=== PATIENT | female | born 1995 | race Caucasian/White ===

== ENCOUNTER 2017-03-31 14:40 | Inpatient (IN) | payer MEDICAID ==
[2017-03-31 15:50] LABS: ADD UMIC YES; UR ASCORBIC ACID 20 mg/dL (NEGATIVE); UR BACTERIA FEW /HPF (NONE SEEN); UR BILIRUBIN (Dip) NEGATIVE (NEGATIVE); UR BLOOD (Dip) NEGATIVE (NEGATIVE); UR CLARITY SLIGHTLY CLOUDY (CLEAR); UR COLOR AMBER (YELLOW); UR GLUCOSE (Dip) NEGATIVE (NEGATIVE); UR KETONES (Dip) NEGATIVE (NEGATIVE); UR LEUKOCYTE ESTERASE (Dip) NEGATIVE Leu/ul (NEGATIVE); UR MUCUS FEW /HPF (NONE SEEN); UR NITRITE (Dip) NEGATIVE (NEGATIVE); UR RBC 0 /HPF (0-5); UR SQUAMOUS EPITHELIAL CELL FEW /HPF (FEW); UR TOTAL PROTEIN (Dip) 2+ mg/dl (NEGATIVE); UR UROBILINOGEN (Dip) NEGATIVE (NEGATIVE); UR WBC 6 /HPF (0-5)
[2017-03-31 15:57] LABS: ADD MAN DIFF? NO
[2017-03-31 16:00] LABS: WHITE BLOOD COUNT 13.6 10^3/ul (4.8-10.8)
[2017-03-31 16:00] LABS: ABNORMAL IP MESSAGE 1; BASOPHIL # 0.1 10^3/ul (0.0-0.1); BASOPHILS % 0.4 % (0.0-2.0); EOSINOPHILS # 0.1 10^3/ul (0.0-0.5); EOSINOPHILS % 0.7 % (0.0-7.0); HEMATOCRIT 36.8 % (37.0-47.0); HEMOGLOBIN 12.7 g/dl (12.0-16.0); LYMPHOCYTES # 1.7 10^3/ul (0.8-2.9); LYMPHOCYTES % 12.4 % (18.0-55.0); MEAN CORPUSCULAR HEMOGLOBIN 30.3 pg (29.0-33.0); MEAN CORPUSCULAR HGB CONC 34.5 g/dl (32.0-37.0); MEAN CORPUSCULAR VOLUME 87.8 fl (72.0-104.0); MEAN PLATELET VOLUME 13.6 fl (7.4-10.4); MONOCYTE # 0.8 10^3/ul (0.3-0.9); MONOCYTES % 5.7 % (0.0-13.0); NEUTROPHIL # 10.9 10^3/ul (1.6-7.5); NEUTROPHILS % 80.4 % (30.0-74.0); PLATELET COUNT 68 10^3/UL (140-415); RED BLOOD COUNT 4.19 10^6/ul (4.20-5.40); RED CELL DISTRIBUTION WIDTH 12.4 % (11.5-14.5)
[2017-03-31 16:13] LABS: POSITIVE DIFF @See below
[2017-03-31 16:14] LABS: INR 0.85; PROTIME 11.7 Sec (11.9-14.9); PT RATIO 0.9
[2017-03-31 16:15] LABS: PARTIAL THROMBOPLASTIN TIME 25.9 Sec (25.0-35.0)
[2017-03-31 16:20] LABS: ALANINE AMINOTRANSFERASE 48 IU/L (13-69); ALBUMIN 3.4 g/dl (3.3-4.9); ALBUMIN/GLOBULIN RATIO 1.06; ALKALINE PHOSPHATASE 129 IU/L (42-121); ANION GAP 11 (8-16); ASPARTATE AMINO TRANSFERASE 47 IU/L (15-46); BILIRUBIN,INDIRECT 0.7 mg/dl (0-1.1); BILIRUBIN,TOTAL 0.7 mg/dl (0.2-1.3); BLOOD UREA NITROGEN 10 mg/dl (7-20); CALCIUM 9.2 mg/dl (8.4-10.2); CARBON DIOXIDE 21 mmol/L (21-31); CHLORIDE 107 mmol/L (97-110); CREATININE 0.73 mg/dl (0.44-1.00); GLUCOSE 70 mg/dl (70-220); POTASSIUM 4.2 mmol/L (3.5-5.1); SODIUM 135 mmol/L (135-144); TOTAL PROTEIN 6.6 g/dl (6.1-8.1); URIC ACID 5.2 mg/dl (3.1-7.9)
[2017-03-31] MEDS ORDERED: LACTATED RINGER'S 1,000 ML IV (18:11)
[2017-04-01 08:24] LABS: ADD MAN DIFF? NO
[2017-04-01 08:27] LABS: ABNORMAL IP MESSAGE 1; BASOPHIL # 0.1 10^3/ul (0.0-0.1); BASOPHILS % 0.7 % (0.0-2.0); EOSINOPHILS # 0.1 10^3/ul (0.0-0.5); EOSINOPHILS % 1.4 % (0.0-7.0); HEMOGLOBIN 12.5 g/dl (12.0-16.0); LYMPHOCYTES # 2.1 10^3/ul (0.8-2.9); LYMPHOCYTES % 22.2 % (18.0-55.0); MEAN CORPUSCULAR HEMOGLOBIN 30.9 pg (29.0-33.0); MEAN CORPUSCULAR HGB CONC 34.7 g/dl (32.0-37.0); MEAN CORPUSCULAR VOLUME 88.9 fl (72.0-104.0); MEAN PLATELET VOLUME 13.5 fl (7.4-10.4); MONOCYTE # 0.7 10^3/ul (0.3-0.9); MONOCYTES % 6.9 % (0.0-13.0); NEUTROPHIL # 6.5 10^3/ul (1.6-7.5); NEUTROPHILS % 68.3 % (30.0-74.0); PLATELET COUNT 66 10^3/UL (140-415); RED BLOOD COUNT 4.05 10^6/ul (4.20-5.40); RED CELL DISTRIBUTION WIDTH 12.4 % (11.5-14.5)
[2017-04-01 08:27] LABS: WHITE BLOOD COUNT 9.6 10^3/ul (4.8-10.8)
[2017-04-01 08:33] LABS: POSITIVE DIFF @See below
[2017-04-01 08:48] LABS: ALANINE AMINOTRANSFERASE 48 IU/L (13-69); ALBUMIN 3.1 g/dl (3.3-4.9); ALKALINE PHOSPHATASE 121 IU/L (42-121); ANION GAP 10 (8-16); ASPARTATE AMINO TRANSFERASE 41 IU/L (15-46); BILIRUBIN,INDIRECT 0.9 mg/dl (0-1.1); BILIRUBIN,TOTAL 0.9 mg/dl (0.2-1.3); BLOOD UREA NITROGEN 9 mg/dl (7-20); CALCIUM 8.6 mg/dl (8.4-10.2); CARBON DIOXIDE 21 mmol/L (21-31); CHLORIDE 108 mmol/L (97-110); CREATININE 0.71 mg/dl (0.44-1.00); GLUCOSE 67 mg/dl (70-220); POTASSIUM 4.1 mmol/L (3.5-5.1); SODIUM 135 mmol/L (135-144); TOTAL PROTEIN 6.2 g/dl (6.1-8.1); URIC ACID 5.7 mg/dl (3.1-7.9)
[2017-04-01 08:52] LABS: INR 0.93; PROTIME 12.6 Sec (11.9-14.9)
[2017-04-01 08:53] LABS: PARTIAL THROMBOPLASTIN TIME 27.6 Sec (25.0-35.0)
[2017-04-01] MEDS ORDERED: METHYLERGONOVINE 0.2 MG INJ IM (19:30)
[2017-04-01] MEDS ORDERED: BUTORPHANOL 2 MG INJ IV (19:30)
[2017-04-01] MEDS ORDERED: LIDOCAINE 1% (MPF) 30 ML INJ INJ (19:30)
[2017-04-01] MEDS ORDERED: MISOPROSTOL 200 MCG TAB PR (19:30)
[2017-04-01] MEDS ORDERED: IBUPROFEN 600 MG TAB PO (19:30)
[2017-04-01] MEDS ORDERED: CARBOPROST 250 MCG INJ IM (19:30)
[2017-04-01] MEDS: LACTATED RINGER'S 1,000 ML IV (19:50)
[2017-04-01 20:49] LABS: COLLECTION PERIOD 24 hrs
[2017-04-01 21:02] LABS: COLLECTION PERIOD 24 hrs; SCRET 0.71 mg/dl (0.44-1.00); VOLUME 2350 ml/24hrs
[2017-04-01 21:03] LABS: VOLUME 2350 mls
[2017-04-01 21:11] LABS: CREATININE,URINE RANDOM 52.63 mg/dl (20-320)
[2017-04-01 21:17] LABS: 24HR URINE TOTAL PROTEIN 493.5 mg/24hrs (42.0-225.0)
[2017-04-01] MEDS ORDERED: OXYTOCIN 30 UNITS/LR 500 ML IV (22:00)
[2017-04-02] MEDS: LACTATED RINGER'S 1,000 ML IV ×4 (04:38→23:06)
[2017-04-02 07:51] LABS: ADD MAN DIFF? NO
[2017-04-02 07:56] LABS: ABNORMAL IP MESSAGE 1; BASOPHIL # 0.1 10^3/ul (0.0-0.1); EOSINOPHILS # 0.1 10^3/ul (0.0-0.5); EOSINOPHILS % 0.9 % (0.0-7.0); HEMATOCRIT 34.8 % (37.0-47.0); HEMOGLOBIN 12.1 g/dl (12.0-16.0); LYMPHOCYTES # 2.1 10^3/ul (0.8-2.9); LYMPHOCYTES % 23.4 % (18.0-55.0); MEAN CORPUSCULAR HEMOGLOBIN 30.9 pg (29.0-33.0); MEAN CORPUSCULAR HGB CONC 34.8 g/dl (32.0-37.0); MEAN PLATELET VOLUME 13.5 fl (7.4-10.4); MONOCYTE # 0.6 10^3/ul (0.3-0.9); MONOCYTES % 6.3 % (0.0-13.0); NEUTROPHIL # 6.1 10^3/ul (1.6-7.5); PLATELET COUNT 69 10^3/UL (140-415); RED BLOOD COUNT 3.91 10^6/ul (4.20-5.40); RED CELL DISTRIBUTION WIDTH 12.4 % (11.5-14.5)
[2017-04-02 08:02] LABS: POSITIVE DIFF @See below
[2017-04-02] MEDS: OXYTOCIN 30 UNITS/LR 500 ML IV (10:05)
[2017-04-02 11:10] LABS: TYPE AND SCREEN 1 1
[2017-04-02] MEDS ORDERED: SOD CHLORIDE 0.9% 1,000 ML IV (11:30)
[2017-04-02] MEDS: SOD CHLORIDE 0.9% 1,000 ML IV (11:58)
[2017-04-02 14:29] LABS: ADD MAN DIFF? NO
[2017-04-02 14:32] LABS: WHITE BLOOD COUNT 12.6 10^3/ul (4.8-10.8)
[2017-04-02 14:32] LABS: ABNORMAL IP MESSAGE 1; BASOPHIL # 0.1 10^3/ul (0.0-0.1); BASOPHILS % 0.4 % (0.0-2.0); EOSINOPHILS % 0.3 % (0.0-7.0); HEMATOCRIT 34.7 % (37.0-47.0); LYMPHOCYTES # 1.7 10^3/ul (0.8-2.9); LYMPHOCYTES % 13.3 % (18.0-55.0); MEAN CORPUSCULAR HEMOGLOBIN 30.8 pg (29.0-33.0); MEAN CORPUSCULAR HGB CONC 34.6 g/dl (32.0-37.0); MEAN CORPUSCULAR VOLUME 89.2 fl (72.0-104.0); MEAN PLATELET VOLUME 12.3 fl (7.4-10.4); MONOCYTE # 0.7 10^3/ul (0.3-0.9); MONOCYTES % 5.5 % (0.0-13.0); NEUTROPHILS % 79.3 % (30.0-74.0); RED BLOOD COUNT 3.89 10^6/ul (4.20-5.40); RED CELL DISTRIBUTION WIDTH 12.5 % (11.5-14.5)
[2017-04-02 14:37] LABS: PLATELET COUNT 86 10^3/UL (140-415); POSITIVE DIFF @See below
[2017-04-02 14:49] LABS: ALANINE AMINOTRANSFERASE 43 IU/L (13-69); ALBUMIN 3.3 g/dl (3.3-4.9); ALKALINE PHOSPHATASE 126 IU/L (42-121); ANION GAP 14 (8-16); ASPARTATE AMINO TRANSFERASE 31 IU/L (15-46); BLOOD UREA NITROGEN 12 mg/dl (7-20); CALCIUM 9.1 mg/dl (8.4-10.2); CARBON DIOXIDE 19 mmol/L (21-31); CHLORIDE 107 mmol/L (97-110); CREATININE 0.76 mg/dl (0.44-1.00); GLUCOSE 61 mg/dl (70-220); POTASSIUM 4.2 mmol/L (3.5-5.1); SODIUM 136 mmol/L (135-144); TOTAL PROTEIN 6.6 g/dl (6.1-8.1)
[2017-04-02] MEDS ORDERED: DIPHENHYDRAMINE 50 MG INJ IV (17:30)
[2017-04-02] MEDS ORDERED: ONDANSETRON 4 MG INJ IV (17:30)
[2017-04-02] MEDS ORDERED: NALOXONE (0.4 MG/ML) INJ IV (17:30)
[2017-04-02 21:20] LABS: RAPID PLASMA REAGIN NONREACTIVE (NR)
[2017-04-03] MEDS: LACTATED RINGER'S 1,000 ML IV ×2 (03:04→10:48)
[2017-04-03] MEDS: FENTAnyl 2MCG/ML-ROPIV 0.2% 100 ML BAG EPI ×2 (04:48→13:12)
[2017-04-03 14:44] LABS: ADD MAN DIFF? NO
[2017-04-03 14:49] LABS: ABNORMAL IP MESSAGE 1; BASOPHIL # 0.1 10^3/ul (0.0-0.1); BASOPHILS % 0.5 % (0.0-2.0); EOSINOPHILS % 0.4 % (0.0-7.0); HEMATOCRIT 34.4 % (37.0-47.0); LYMPHOCYTES # 1.3 10^3/ul (0.8-2.9); LYMPHOCYTES % 11.5 % (18.0-55.0); MEAN CORPUSCULAR HEMOGLOBIN 31.2 pg (29.0-33.0); MEAN CORPUSCULAR HGB CONC 34.9 g/dl (32.0-37.0); MEAN CORPUSCULAR VOLUME 89.4 fl (72.0-104.0); MEAN PLATELET VOLUME 12.5 fl (7.4-10.4); MONOCYTE # 0.9 10^3/ul (0.3-0.9); MONOCYTES % 7.5 % (0.0-13.0); NEUTROPHILS % 79.5 % (30.0-74.0); RED BLOOD COUNT 3.85 10^6/ul (4.20-5.40); RED CELL DISTRIBUTION WIDTH 12.6 % (11.5-14.5)
[2017-04-03 14:49] LABS: WHITE BLOOD COUNT 11.3 10^3/ul (4.8-10.8)
[2017-04-03 14:53] LABS: PLATELET COUNT 84 10^3/UL (140-415); POSITIVE DIFF @See below
[2017-04-03] MEDS ORDERED: OXYTOCIN 30 UNITS/LR 500 ML IV ×3 (16:00→21:30)
[2017-04-03] MEDS: CITRIC ACID/SODIUM CITRATE 15 ML CUP PO (16:08)
[2017-04-03] MEDS ORDERED: CITRIC ACID/SODIUM CITRATE 15 ML CUP (16:08)
[2017-04-03] MEDS ORDERED: morphine SULFATE/PF (10 MG/10 ML) INJ (16:23)
[2017-04-03] MEDS ORDERED: LIDOCAINE 1.5%/EPI MPF (SDV) 30 ML VIAL (16:23)
[2017-04-03] MEDS ORDERED: METOCLOPRAMIDE 10 MG INJ (16:23)
[2017-04-03] MEDS ORDERED: EPHEDrine SULFATE 50 MG/5 ML SYG (16:51)
[2017-04-03] MEDS: CEFAZOLIN 2 GM/50 ML (PMX) 50 ML IV (16:57)
[2017-04-03] MEDS ORDERED: morphine (1 MG/ML) 10ML SYRINGE IV ×3 (17:00)
[2017-04-03] MEDS ORDERED: ONDANSETRON 4 MG INJ IV ×2 (17:00→20:00)
[2017-04-03] MEDS: OXYTOCIN 30 UNITS/LR 500 ML IV ×2 (17:00→20:44)
[2017-04-03] MEDS ORDERED: PROPOFOL 20 ML (17:05)
[2017-04-03] MEDS: LABETALOL 200 MG TAB PO (18:00)
[2017-04-03] MEDS: MAGNESIUM SULFATE 20 GM/500 ML 500 ML IV (18:19)
[2017-04-03] MEDS ORDERED: morphine 2 MG INJ IV ×2 (20:00)
[2017-04-03] MEDS ORDERED: DIPHENHYDRAMINE 50 MG INJ IV (20:00)
[2017-04-03] MEDS ORDERED: NALOXONE (0.4 MG/ML) INJ IV (20:00)
[2017-04-03] MEDS ORDERED: DEXTROSE 5%-LR 1,000 ML IV (21:23)
[2017-04-03] MEDS ORDERED: MISOPROSTOL 200 MCG TAB PR (21:30)
[2017-04-03] MEDS ORDERED: METHYLERGONOVINE 0.2 MG INJ IM (21:30)
[2017-04-03] MEDS ORDERED: CARBOPROST 250 MCG INJ IM (21:30)
[2017-04-03] MEDS: OXYCODONE/ACETAMINOPHEN (5/325) TAB PO (21:30)
[2017-04-03] MEDS ORDERED: OXYCODONE/ACETAMINOPHEN (5/325) TAB PO (21:30)
[2017-04-03] MEDS ORDERED: METHYLERGONOVINE 0.2 MG TAB PO (21:30)
[2017-04-03] MEDS ORDERED: LANOLIN 7 GM TUBE TOP (21:30)
[2017-04-03] MEDS: IBUPROFEN 800 MG TAB PO (22:00)
[2017-04-04 01:17] LABS: MAGNESIUM 4.8 mg/dl (1.7-2.5)
[2017-04-04] MEDS: MAGNESIUM SULFATE 20 GM/500 ML 500 ML IV ×2 (03:51→14:05)
[2017-04-04] MEDS: OXYTOCIN 30 UNITS/LR 500 ML IV (03:53)
[2017-04-04] MEDS: morphine 2 MG INJ IV (05:18)
[2017-04-04] MEDS: OXYCODONE/ACETAMINOPHEN (5/325) TAB PO ×4 (05:30→21:43)
[2017-04-04] MEDS: IBUPROFEN 800 MG TAB PO ×2 (06:00→17:10)
[2017-04-04] MEDS: KETOROLAC 30 MG INJ IV (08:06)
[2017-04-04] MEDS: SENNA/DOCUSATE NA (8.6MG/50MG) TAB PO ×2 (08:41→21:37)
[2017-04-04] MEDS: INFLUENZA VIRUS VACCINE 0.5 ML (DISPENSING) IM* (08:42)
[2017-04-04 08:58] LABS: ADD MAN DIFF? NO
[2017-04-04] MEDS: LABETALOL 200 MG TAB PO ×2 (09:00→21:37)
[2017-04-04 09:15] LABS: WHITE BLOOD COUNT 11.3 10^3/ul (4.8-10.8)
[2017-04-04 09:15] LABS: ABNORMAL IP MESSAGE 1; BASOPHILS % 0.4 % (0.0-2.0); EOSINOPHILS % 0.1 % (0.0-7.0); HEMATOCRIT 28.9 % (37.0-47.0); HEMOGLOBIN 10.1 g/dl (12.0-16.0); LYMPHOCYTES # 0.9 10^3/ul (0.8-2.9); LYMPHOCYTES % 7.8 % (18.0-55.0); MEAN CORPUSCULAR HGB CONC 34.9 g/dl (32.0-37.0); MEAN CORPUSCULAR VOLUME 88.7 fl (72.0-104.0); MEAN PLATELET VOLUME 12.4 fl (7.4-10.4); MONOCYTE # 0.9 10^3/ul (0.3-0.9); MONOCYTES % 8.2 % (0.0-13.0); NEUTROPHIL # 9.4 10^3/ul (1.6-7.5); NEUTROPHILS % 82.8 % (30.0-74.0); PLATELET COUNT 49 10^3/UL (140-415); RED BLOOD COUNT 3.26 10^6/ul (4.20-5.40); RED CELL DISTRIBUTION WIDTH 12.4 % (11.5-14.5)
[2017-04-04 09:22] LABS: POSITIVE DIFF @See below
[2017-04-04 09:30] LABS: MAGNESIUM 5.8 mg/dl (1.7-2.5)
[2017-04-04] MEDS: LACTATED RINGER'S 1,000 ML IV (10:31)
[2017-04-04 11:28] LABS: ALANINE AMINOTRANSFERASE 123 IU/L (13-69); ALBUMIN 2.7 g/dl (3.3-4.9); ALKALINE PHOSPHATASE 117 IU/L (42-121); ANION GAP 11 (8-16); ASPARTATE AMINO TRANSFERASE 193 IU/L (15-46); BILIRUBIN,INDIRECT 1.3 mg/dl (0-1.1); BILIRUBIN,TOTAL 1.3 mg/dl (0.2-1.3); BLOOD UREA NITROGEN 7 mg/dl (7-20); CALCIUM 6.8 mg/dl (8.4-10.2); CARBON DIOXIDE 21 mmol/L (21-31); CHLORIDE 99 mmol/L (97-110); CREATININE 0.82 mg/dl (0.44-1.00); GLUCOSE 99 mg/dl (70-220); POTASSIUM 3.9 mmol/L (3.5-5.1); SODIUM 127 mmol/L (135-144); TOTAL PROTEIN 5.7 g/dl (6.1-8.1)
[2017-04-04 16:53] LABS: INR 1.01; PROTIME 13.4 Sec (11.9-14.9)
[2017-04-04 16:56] LABS: D-DIMER 2398.12 ng/ml (<460)
[2017-04-04 17:00] LABS: LACTATE DEHYDROGENASE 1351 IU/L (313-618)
[2017-04-04 17:01] LABS: MAGNESIUM 4.7 mg/dl (1.7-2.5)
[2017-04-04 17:55] LABS: PARTIAL THROMBOPLASTIN TIME 34.3 Sec (25.0-35.0)
[2017-04-04 18:21] LABS: FOLATE > 20.0 ng/ml (2.8-20.0)
[2017-04-05] MEDS: OXYCODONE/ACETAMINOPHEN (5/325) TAB PO ×3 (05:29→21:25)
[2017-04-05] MEDS: IBUPROFEN 800 MG TAB PO ×3 (05:29→22:30)
[2017-04-05 08:26] LABS: ADD MAN DIFF? NO
[2017-04-05 08:38] LABS: WHITE BLOOD COUNT 12.1 10^3/ul (4.8-10.8)
[2017-04-05 08:38] LABS: ABNORMAL IP MESSAGE 1; BASOPHILS % 0.2 % (0.0-2.0); EOSINOPHILS # 0.1 10^3/ul (0.0-0.5); EOSINOPHILS % 0.6 % (0.0-7.0); HEMATOCRIT 28.3 % (37.0-47.0); HEMOGLOBIN 9.6 g/dl (12.0-16.0); LYMPHOCYTES # 1.1 10^3/ul (0.8-2.9); LYMPHOCYTES % 9.4 % (18.0-55.0); MEAN CORPUSCULAR HEMOGLOBIN 30.8 pg (29.0-33.0); MEAN CORPUSCULAR HGB CONC 33.9 g/dl (32.0-37.0); MEAN CORPUSCULAR VOLUME 90.7 fl (72.0-104.0); MEAN PLATELET VOLUME 13.1 fl (7.4-10.4); MONOCYTE # 0.7 10^3/ul (0.3-0.9); NEUTROPHIL # 10.1 10^3/ul (1.6-7.5); NEUTROPHILS % 83.2 % (30.0-74.0); RED BLOOD COUNT 3.12 10^6/ul (4.20-5.40); RED CELL DISTRIBUTION WIDTH 12.9 % (11.5-14.5)
[2017-04-05] MEDS: LABETALOL 200 MG TAB PO (08:39)
[2017-04-05] MEDS: SENNA/DOCUSATE NA (8.6MG/50MG) TAB PO ×2 (08:41→21:25)
[2017-04-05 08:48] LABS: ALANINE AMINOTRANSFERASE 85 IU/L (13-69); ALBUMIN 2.7 g/dl (3.3-4.9); ALKALINE PHOSPHATASE 106 IU/L (42-121); ANION GAP 12 (8-16); ASPARTATE AMINO TRANSFERASE 78 IU/L (15-46); BILIRUBIN,INDIRECT 0.4 mg/dl (0-1.1); BILIRUBIN,TOTAL 0.4 mg/dl (0.2-1.3); BLOOD UREA NITROGEN 6 mg/dl (7-20); CARBON DIOXIDE 24 mmol/L (21-31); CHLORIDE 105 mmol/L (97-110); CREATININE 0.77 mg/dl (0.44-1.00); GLUCOSE 93 mg/dl (70-220); SODIUM 137 mmol/L (135-144); TOTAL PROTEIN 5.7 g/dl (6.1-8.1)
[2017-04-05 08:49] LABS: PLATELET COUNT 45 10^3/UL (140-415); POSITIVE DIFF @See below
[2017-04-05] MEDS: NA PHOSPHATE/BIPHOS 133 ML ENEMA PR (14:00)
[2017-04-05] MEDS: LABETALOL 100 MG TAB PO (21:00)
[2017-04-06] MEDS: OXYCODONE/ACETAMINOPHEN (5/325) TAB PO ×2 (06:19→12:38)
[2017-04-06] MEDS: IBUPROFEN 800 MG TAB PO ×2 (06:20→14:00)
[2017-04-06] MEDS: MEASLES,MUMPS,RUBELLA VACCINE INJ SC* (09:00)
[2017-04-06] MEDS: LABETALOL 100 MG TAB PO (09:00)
[2017-04-06] MEDS: SENNA/DOCUSATE NA (8.6MG/50MG) TAB PO (09:40)
[2017-04-06 09:53] LABS: HAPTOGLOBIN 130 mg/dL (43-212); HAPTOGLOBIN 139 mg/dL (43-212)
[2017-04-06 12:01] LABS: ANA SCREEN NEGATIVE (NEGATIVE)
[2017-04-06] MEDS: DIPHTH/TET/ACEL PERTUSS (ADULT) 0.5 ML VIAL IM* (13:18)
== END 2017-04-06 14:30 | disposition home or self-care (01) | DRG 766 ==
LOC: OBT 14:40 → L-D 04-01 15:12 → PP1 04-03 21:49 → OBT 17:30 → PP1 17:30
PROC: 10D00Z1 Extraction of Products of Conception, Low, Open Approach (ICD-10-PCS; principal; 2017-04-02)
DX: O14.94 Unspecified pre-eclampsia, complicating childbirth (principal); O60.14X0 Preterm labor third trimester with preterm delivery third trimester, not applicable or unspecified; O24.429 Gestational diabetes mellitus in childbirth, unspecified control; O62.0 Primary inadequate contractions; Z3A.36 36 weeks gestation of pregnancy; Z37.0 Single live birth
CPT/HCPCS: 36430; 62319; 76815; 76818; 80053; 81001; 82575; 82607; 82746; 83010; 83615; 83735; 84156; 84560; 85025; 85378; 85384; 85610; 85613; 85730; 86022; 86038; 86592; 86850; 86900; 86901; 88307; 90686; 90715; 94760; 99464

== ENCOUNTER 2017-04-12 18:41 | Emergency (ER) | payer MEDICAID | END 2017-04-12 20:25 | disposition home or self-care (01) | LOC: E/R 20:25 | DX: Z48.01 Encounter for change or removal of surgical wound dressing (principal) | CPT/HCPCS: 99281; Z7502 ==